=== PATIENT | male | born 1995 | race Two or more races ===

== ENCOUNTER 2021-01-01 08:32 | Emergency (ER) | payer BC ==
[~2021-01-01] VITALS: Ht 182.9 cm; Wt 108.9 kg
--- NOTE | 2021-01-01 08:32 | NUR ---
PT BIB SELF C/O ABDOMINAL PAIN SINCE THURSDAY "TODAY PUS DRAINAGE ON MY BELLY BUTTON" PT IS AAOX4, NOT IN RESPIRATORY DISTRESS, HOOKED TO TEST MANAGER, KEPT RESTED AND COMFORTABLE. WILL CONTINUE TO MONITOR.
--- NOTE | 2021-01-01 08:45 | NUR ---
URINE SPECIMEN COLLECTED AND SENT TO LAB.
--- NOTE | 2021-01-01 08:50 | NUR ---
IV LINE ESTABLISHED BLOOD DRAWN AND SENT TO LAB.
[2021-01-01] MEDS ORDERED: IV NS 0.9% 1,000 ML BAG IV ONE (09:00)
[2021-01-01 09:06] LABS: BASOPHILS % (AUTO) 0.1 % (0.0-2.0); EOSINOPHILS % (AUTO) 0.1 % (0.0-6.0); HEMATOCRIT 39 % (39-51); HEMOGLOBIN 12.9 g/dL (13.5-17.5); LYMPHOCYTES # (AUTO) 1.5 /CMM (0.8-4.8); LYMPHOCYTES % (AUTO) 10.5 % (20.0-44.0); MEAN CORPUSCULAR HGB CONC 33 g/dl (31.0-36.0); MEAN CORPUSCULAR VOLUME 95 fL (80-96); MONOCYTES # (AUTO) 0.9 /CMM (0.1-1.30); MONOCYTES % (AUTO) 6.8 % (2.0-12.0); NEUTROPHILS # (AUTO) 11.4 /CMM (1.8-8.9); NEUTROPHILS % (AUTO) 82.5 % (43.0-81.0); PLATELET COUNT (AUTO) 264 /CMM (150-450); RED BLOOD CELL COUNT(AUTO) 4.13 MIL/uL (4.5-6.0); WHITE BLOOD COUNT (AUTO) 13.9 K/uL (4.3-11.0)
[2021-01-01 09:22] LABS: CALCIUM, SERUM 9.2 mg/dL (8.5-10.1); CREATININE 0.7 mg/dL (0.6-1.3); POTASSIUM 3.8 mmol/L (3.5-5.1)
[2021-01-01 09:28] LABS: ALBUMIN 3.5 g/dL (3.4-5.0); BILIRUBIN,DIRECT 0.1 mg/dL (0.0-0.2); BILIRUBIN,TOTAL 0.3 mg/dL (0.2-1.0)
[2021-01-01] MEDS ORDERED: CT SWABBABLE VALVE TRANS SET 1 EA INFUS.SET MC ONE (09:30)
[2021-01-01] MEDS ORDERED: IOHEXOL-300 100 ML VIAL IV ONE (09:30)
[2021-01-01] MEDS ORDERED: IV NS 0.9% 250 ML IV ONE (09:31)
[2021-01-01 10:09] LABS: BILIRUBIN,URINE NEGATIVE (NEGATIVE); COLOR,URINE YELLOW (YELLOW); LEUKOCYTE ESTERASE ,URINE NEGATIVE (NEGATIVE); NITRITE, URINE NEGATIVE (NEGATIVE); PH,URINE 7.5 (5.0-8.0); PROTEIN,URINE NEGATIVE (NEGATIVE); UGLUCOSE NEGATIVE (NEGATIVE); UROBILINOGEN,URINE 0.2 EU/dL (0.2)
[2021-01-01] MEDS ORDERED: SULF1TAB48 PO (10:54)
[2021-01-01] MEDS ORDERED: CEPH500C2 PO (10:54)
--- NOTE | 2021-01-01 11:11 | NUR ---
IV removed. Catheter intact and site benign. Pressure and 4x4 applied to site. No bleeding noted. Patient discharged to home in stable condition. Written and verbal after care instructions given. Patient verbalizes understanding of instruction.
[2021-01-01 11:12] VITALS: BP 125/68
== END 2021-01-01 11:13 | disposition home or self-care (01) ==
LOC: ER 08:36
DX: L02.211 Cutaneous abscess of abdominal wall (principal)
CPT/HCPCS: 36415; 74177; 80048; 80076; 81003; 83690; 85025; 96360; 99285; J7030; J7050; Q9967

== ENCOUNTER 2021-05-22 16:19 | Emergency (ER) | payer BC, OTHER ==
[~2021-05-22] VITALS: Ht 182.9 cm; Wt 123.8 kg
[~2021-05-22 16:19] MED LIST: CEPH500C2 PO; SULF1TAB48 PO
--- NOTE | 2021-05-22 16:30 | NUR ---
dr torres at bedside for eval.
--- NOTE | 2021-05-22 16:37 | NUR ---
The patient bibs for c/o L sided stabbing like chest pain worst when coughing. started last night. The patient rates pain 8/10. In room air and denies SOB. Respiration regular and unlabored. Will continue to monitor the patient.
--- NOTE | 2021-05-22 16:49 | NUR ---
patient to radiology for chest xray.
[2021-05-22] MEDS ORDERED: IBUP-1955 PO (17:39)
[2021-05-22] MEDS ORDERED: KETOROLAC TROMETHAMINE 15 MG/ML VIAL ONE (17:44)
[2021-05-22 17:51] VITALS: BP 146/83
--- NOTE | 2021-05-22 17:51 | NUR ---
Patient discharged to home in stable condition. Written and verbal after care instructions given. Patient verbalizes understanding of instruction.
[2021-05-22] MEDS ORDERED: KETOROLAC TROMETHAMINE INJ 30 MG/ML VIAL IM ONE (18:00)
== END 2021-05-22 17:52 | disposition home or self-care (01) ==
LOC: ER 16:27
DX: R07.89 Other chest pain (principal); R05 Cough; Z20.822 Contact with and (suspected) exposure to COVID-19; R03.0 Elevated blood-pressure reading, without diagnosis of hypertension; F17.200 Nicotine dependence, unspecified, uncomplicated
CPT/HCPCS: 71045; 93005; 96372; 99285; J1885; U0003; C9803